=== PATIENT | female | born 1940 | race Caucasian/White ===

== ENCOUNTER 2019-03-05 10:42 | Emergency (ER) | payer OTHER ==
--- OUTSIDE RECORDS SUMMARY | 2019-03-05 10:53 | XMS REPORT ---
:1940 Author Organization e[employer]Works Care Team Providers Name Role Phone Veliz, Na Provider Role Unavailable Allergies No Known Allergies Problems Problem Type Condition Code Onset Dates Condition Status Problem Herpes zoster without complication B02.9 Active Problem Postherpetic neuralgia B02.29 Active Problem Dementia without behavioral F03.90 Active disturbance, unspecified dementia type Problem Primary osteoarthritis of right knee M17.11 Active Problem GERD (gastroesophageal reflux K21.9 Active disease) Problem Seasonal allergic rhinitis, J30.2 Active unspecified trigger Problem HTN (hypertension) I10 Active Problem Hoarseness R49.0 Active Problem Smell disturbance R43.9 Active Problem Depression with anxiety F41.8 Active Problem Taste absent R43.2 Active Problem Unsteady gait R26.81 Active Problem Hyperlipidemia E78.5 Active Problem Memory loss R41.3 Active Problem Hypothyroidism E03.9 Active Problem Allergic rhinitis J30.9 Active Problem 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 without behavioral disturbance Problem 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 Active Problem Encounter for screening mammogram Z12.31 Active for malignant neoplasm of breast Problem 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 Assessment Depression with anxiety F41.8 Active Problem Sciatica of left side M54.32 Active Problem Acute right-sided thoracic back pain M54.6 Active Medications Medication Code Code Instructions Start End Status Dosage System Date Date [facility] 28279064934 81 MG Orally Active 1 tablet Once a day Kwabena [facility] 29125265555 0.01 % Active 1 drop into Ophthalmic affected eye Once a day in the evening Multi For Her [facility] 25284515134 - Orally Active as directed 50+ Donepezil HCl [facility] 93340621318 5 MG Orally Active 1 tablet at Once a day bedtime Paroxetine HCl [facility] 98605265480 20MG Orally Active TAKE ONE Once a day TABLET BY MOUTH ONCE DAILY Metoprolol [facility] 75718130561 50 MG Orally Active 1 tablet Succinate ER Once a day Lidocaine HCl [facility] 53092148179 3 % Externally Active 1 application Twice a day to affected area as needed Namenda [facility] 88169579482 10 MG Orally Active 1 tablet Twice a day Zyrtec Allergy [place] 26327739792 10 MG Orally Active 1 tablet Once a day L-Theanine [facility] 21214933848 100 MG Orally Active as directed Vitamin D3 [facility] 32243233949 2000 UNIT Active 1 capsule Orally Once a day Melatonin ND 66271572711 5 MG Orally Active 1 tablet at Once a day bedtime as needed with food Pravastatin [facility] 32536724096 40MG Orally Active 1 tablet Sodium twice a day Gabapentin [facility] 99406027803 300 MG Orally Dec 30, Active 1 capsule Once a day on 2017 before day 1 and twic bedtime a day on day 2 and then three times a day after that [place] 3 [facility] 65235274142 1000 MG Orally Active 1 capsule Once a day Combigan [facility] 71262652017 0.2-0.5 % Active 1 drop into Ophthalmic affected eye Twice a day Valacyclovir HCl [facility] 34546197099 1GM Orally Active 1 tablet three times a day Gabapentin [facility] 49950768379 600 MG Orally Active 1 tablet three times a day Omeprazole [facility] 50106017122 40MG Active TAKE ONE CAPSULE BY MOUTH ONCE DAILY Hair Skin Nails [facility] 81195988001 - Orally Active as directed B-12 [facility] 56555954614 5000 MCG Active as directed Orally Levothyroxine [facility] 05353710055 75 MCG Orally Active 1 tablet on Sodium Once a day an empty stomach in the morning Vitamin E ND 0 400 IU PO once Dec 06, Active 1 capsule Natural a day 2018 CoQ10 [facility] 52352173001 200 MG Orally Active 1 capsule Once a day with a meal Vitamin C [facility] [address]-59 1000 MG Orally Active 1 tablet Twice a Day Super B [facility] 68261508206 - Orally Active as directed Complex/Vitamin C Results No Known Results Summary Purpose eClinicalWorks Submission
--- OUTSIDE RECORDS SUMMARY | 2019-03-05 10:53 | XMS REPORT ---
:1940 Author Organization e[employer]Works Care Team Providers Name Role Phone Veliz, Na Provider Role Unavailable Allergies, Adverse Reactions, Alerts Substance Reaction Event Type penicillin itching Drug Allergy codeine itching Drug Allergy Caffeine jitery Drug Allergy Problems Problem Type Condition Code Onset Dates Condition Status Assessment Smell disturbance R43.9 Active Assessment Taste absent R43.2 Active Assessment Dementia without behavioral F03.90 Active disturbance, unspecified dementia type Assessment Hypothyroidism E03.9 Active Assessment Hyperlipidemia E78.5 Active Assessment Unsteady gait R26.81 Active Problem 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 Assessment Depression with anxiety F41.8 Active Problem Acute right-sided thoracic back pain M54.6 Active Assessment HTN (hypertension) I10 Active Problem Herpes zoster without complication B02.9 Active Problem Postherpetic neuralgia B02.29 Active Problem Dementia without behavioral F03.90 Active disturbance, unspecified dementia type Problem Primary osteoarthritis of right knee M17.11 Active Problem Seasonal allergic rhinitis, J30.2 Active unspecified trigger Problem GERD (gastroesophageal reflux K21.9 Active disease) Problem HTN (hypertension) I10 Active Problem Hoarseness R49.0 Active Assessment Postherpetic neuralgia B02.29 Active Problem Smell disturbance R43.9 Active Problem [...] Active for malignant neoplasm of breast Problem Sciatica of left side M54.32 Active Medications Medication Code Code Instructions Start End Status Dosage System Date Date [facility] 13036803563 81 MG Orally Active 1 tablet Once a day Gabapentin [facility] 18150108328 300 MG Orally Active 1 capsule Twice a day before bedtime Namenda [facility] 98585461704 10 MG Orally Active 1 tablet Twice a day Paxil [facility] 82010473983 20 MG Orally Active 1 tablet in Once a day the morning Metoprolol [facility] 87172173446 50 MG Orally Inactive 1 tablet Succinate ER Once a day Gabapentin [facility] 97703559371 600 MG Orally Active 1 tablet three times a day Zyrtec Allergy [facility] 31738074684 10 MG Orally Active 1 tablet Once a day Levothyroxine [facility] 05004632582 75 MCG Orally Active 1 tablet on Sodium Once a day an empty stomach in the morning Incruse Ellipta [facility] 32829108322 62.5 MCG/INH Dec 30March Active 1 puff Inhalation 2017, Once a day 2017 Gabapentin [facility] 63214626054 300 MG Orally Dec 30, Active 1 capsule Once a day on 2017 before day 1 and twic bedtime a day on day 2 and then three times a day after that Combigan [facility] 57383879173 0.2-0.5 % Active 1 drop into Ophthalmic affected eye Twice a day Pravastatin [facility] 91480472951 40 MG Orally Active 1 tablet Sodium Once a day Omeprazole [facility] 74835367361 40 MG Orally Active 1 capsule Once a day Lumigan [facility] 24066058536 0.01 % Active 1 drop into Ophthalmic affected eye Once a day in the evening Lidocaine HCl [facility] 92991885398 3 % Externally Active 1 application Twice a day to affected area as needed Paroxetine HCl [facility] 80903428196 20MG Active TAKE ONE TABLET BY MOUTH ONCE DAILY Results No Known Results Summary Purpose eClinicalWorks Submission
--- OUTSIDE RECORDS SUMMARY | 2019-03-05 10:53 | XMS REPORT ---
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 Assessment Hoarseness R49.0 Active Problem Acute right-sided thoracic back pain M54.6 Active Assessment Seasonal allergic rhinitis, J30.2 Active unspecified trigger Problem Herpes zoster without complication B02.9 Active Problem Postherpetic neuralgia B02.29 Active Problem Dementia without behavioral F03.90 Active disturbance, unspecified dementia type Problem Primary osteoarthritis of right knee M17.11 Active Problem Seasonal allergic rhinitis, J30.2 Active unspecified trigger Problem GERD (gastroesophageal reflux K21.9 Active disease) Problem HTN (hypertension) I10 Active Problem Hoarseness R49.0 Active Assessment HTN (hypertension) I10 Active Problem Smell disturbance R43.9 Active Problem [...] Start End Status Dosage System Date Date Namenda ND 89762032081 10 MG Orally Active 1 tablet Twice a day Lumigan [facility] 51254751992 0.01 % Active 1 drop into Ophthalmic affected eye Once a day in the evening Zyrtec Allergy [facility] 47085192835 10 MG Orally Active 1 tablet Once a day Gabapentin [facility] 96052871163 300 MG Orally Active 1 capsule Twice a day before bedtime Gabapentin [facility] 08319978551 600 MG Orally Active 1 tablet three times a day Paxil [facility] 58372032532 20 MG Orally Active 1 tablet in Once a day the morning Metoprolol [facility] 62555965386 50 MG Orally Inactive 1 tablet Succinate ER Once a day Combigan [facility] 64766243707 0.2-0.5 % Active 1 drop into Ophthalmic affected eye Twice a day Omeprazole [facility] 06448355510 40MG Active TAKE ONE CAPSULE BY MOUTH ONCE DAILY Levothyroxine [facility] 92973376917 75 MCG Orally Active 1 tablet on Sodium Once a day an empty stomach in the morning Paroxetine HCl [facility] 49127625967 20MG Active TAKE ONE TABLET BY MOUTH ONCE DAILY Lidocaine HCl [facility] 53759957592 3 % Externally Active 1 application Twice a day to affected area as needed Gabapentin [facility] 18680907452 300 MG Orally Dec 30, Active 1 capsule Once a day on 2017 before day 1 and twic bedtime a day on day 2 and then three times a day after that Aspir-81 [facility] 93741504389 81 MG Orally Active 1 tablet Once a day Pravastatin [facility] 04666497168 40 MG Orally Active 1 tablet Sodium Once a day Results No Known Results Summary Purpose eClinicalWorks Submission
--- OUTSIDE RECORDS SUMMARY | 2019-03-05 10:54 | XMS REPORT ---
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
--- OUTSIDE RECORDS SUMMARY | 2019-03-05 10:54 | XMS REPORT ---
[...] Start End Status Dosage System Date Date Omeprazole [facility] 71237394102 40MG Active TAKE ONE CAPSULE BY MOUTH ONCE DAILY Pravastatin [facility] 84787646444 40MG Orally Active 1 tablet Sodium twice a day Results No Known Results Summary Purpose eClinicalWorks Submission
[2019-03-05 14:03] LABS: Absolute Monocytes 1.1 K/uL (0.1-1.3); Absolute Neutrophil 5.9 K/uL (1.8-8.0); Basophils % 0.6 % (0-1.3); Eosinophils % 0.8 % (0-4.4); Hematocrit 50.3 % (36.0-45.0); Lymphocytes % 12.9 % (15.3-44.8); Monocytes % 13.6 % (3.3-12.3); RBC Red Blood Cell Count 5.72 M/uL (3.86-4.86)
[2019-03-05 14:12] LABS: Potassium 3.7 mmol/L (3.5-5.1); Uric Acid 4.6 mg/dL (2.6-6.0)
--- NOTE | 2019-03-05 14:38 | RAD REPORT ---
EXAM DESCRIPTION: US - Extremity Venous Uni Ltd - 03/05/2019 2:19 pm CLINICAL HISTORY: Pain;Swelling Leg swelling and edema. COMPARISON: Extrem Venous W Compress Jaime dated 12/28/2017 FINDINGS: Left lower extremity venous system was interrogated with Doppler technique. Normal flow, c ompressibility and augmentation was noted. There is no DVT present. IMPRESSION: No evidence of left lower extremity deep venous thrombosis.
--- NOTE | 2019-03-05 15:30 | RAD REPORT ---
EXAM DESCRIPTION: RAD - Ankle Left 3 View - 03/05/2019 3:12 pm CLINICAL HISTORY: Left leg pain and swelling x1 week, no precipitating injury noted pre COMPARISON: None. FINDINGS: No fracture, dislocation or periosteal reaction. No joint effusion seen. No joint space na rrowing. Patient has a minimal plantar spur. Soft tissues around the ankle and distal leg appear prom inent with the baseline unknown. IMPRESSION: Soft tissue swelling with no air or foreign body in the soft tissues. Small plantar spur. No acute bone or joint finding.
--- NOTE | 2019-03-05 16:11 | EDPHYS ---
Physician Documentation [facility] Name: Linnea Gustafson Age: 78 yrs Sex: Female : 1940 Arrival Date: 03/05/2019 Time: 10:44 Bed 17 Private MD: ED Physician Paulo Adler HPI: 03/05 18:03 This 78 yrs old Female presents to ER via Wheelchair with complaints of Leg gs Swelling. 18:03 The patient presents with swelling. The complaints affect the left lateral ankle and gs left medial ankle. Context: The problem was sustained at home, the patient can partially bear weight. Onset: The symptoms/episode began/occurred 5 day(s) ago. Modifying factors: the symptoms are aggravated by movement, weight bearing. Associated signs and symptoms: Pertinent positives: calf tenderness, Pertinent negatives fever, tingling. Severity of symptoms: At their worst the symptoms were severe, in the emergency department the symptoms have improved, mildly. The patient has not experienced similar symptoms in the past. Historical: - Allergies: 10:57 Codeine; aa5 10:57 PENICILLINS; aa5 - PMHx: 10:57 Anxiety; GERD; Glaucoma; Hypertension; Hypothyroidism; aa5 - PSHx: 10:57 Hysterectomy; Appendectomy; aa5 - Immunization history:: Flu vaccine is up to date. - Social history:: Smoking status: Patient/guardian denies using tobacco. - Ebola Screening: : No symptoms or risks identified at this time. ROS: 18:03 All other systems are negative. gs Exam: 18:03 Head/Face: Normocephalic, atraumatic. Eyes: Pupils equal round and reactive to light, gs extra-ocular motions intact. Lids and lashes normal. Conjunctiva and sclera are non-icteric and not injected. Cornea within normal limits. Periorbital areas with no swelling, redness, or edema. ENT: Nares patent. No nasal discharge, no septal abnormalities noted. Tympanic membranes are normal and external auditory canals are clear. Oropharynx with no redness, swelling, or masses, exudates, or evidence of obstruction, uvula midline. Mucous membranes moist. Neck: Trachea midline, no thyromegaly or masses palpated, and no cervical lymphadenopathy. Supple, full range of motion without nuchal rigidity, or vertebral point tenderness. No Meningismus. Chest/axilla: Normal chest wall appearance and motion. Nontender with no deformity. No lesions are appreciated. Cardiovascular: Regular rate and rhythm with a normal S1 and S2. No gallops, murmurs, or rubs. Normal PMI, no JVD. No pulse deficits. Respiratory: Lungs have equal breath sounds bilaterally, clear to auscultation and percussion. No rales, rhonchi or wheezes noted. No increased work of breathing, no retractions or nasal flaring. Abdomen/GI: Soft, non-tender, with normal bowel sounds. No distension or tympany. No guarding or rebound. No evidence of tenderness throughout. Back: No spinal tenderness. No costovertebral tenderness. Full range of motion. Skin: Warm, dry with normal turgor. Normal color with no rashes, no lesions, and no evidence of cellulitis. Neuro: Awake and alert, GCS 15, oriented to person, place, time, and situation. Cranial nerves II-XII grossly intact. Motor strength 5/5 in all extremities. Sensory grossly intact. Cerebellar exam normal. Normal gait. 18:03 Constitutional: The patient appears alert, awake. 18:03 Musculoskeletal/extremity: ROM: no acute changes, Pulses: are normal with no appreciated deficits, Sensation intact. Joints: the left ankle displays mild effusion, mild erythema not hot, mod warmth. 18:15 Musculoskeletal/extremity: DVT Exam: pain, swelling, tenderness. Vital Signs: 11:00 BP 126 / 66; Pulse 74; Resp 18 S; Temp 98.6(TE); Pulse Ox 98% on R/A; Weight 72.57 kg aa5 (R); Height 5 ft. 4 in. (162.56 cm) (R); Pain 9/10; 14:13 BP 156 / 65; Pulse 65; Resp 18; Pulse Ox 98% ; sv 15:22 BP 139 / 75; Pulse 67; Resp 18; Pulse Ox 99% ; sv 16:09 BP 151 / 81; Pulse 68; Resp 16; Pulse Ox 99% ; sv 11:00 Body Mass Index 27.46 (72.57 kg, 162.56 cm) aa5 MDM: 13:18 Patient medically screened. 18:03 Differential diagnosis: tendonitis, arthritis,gout,septic joint. Data reviewed: vital gs signs, nurses notes, lab test result(s), radiologic studies. Counseling: I had a detailed discussion with the patient and/or guardian regarding: the historical points, exam findings, and any diagnostic results supporting the discharge/admit diagnosis, lab results, radiology results, the need for outpatient follow up, a orthopedic surgeon. Physician consultation: Anish Sarmiento MD and will see patient in office, said no joint tap current time. 18:15 Differential diagnosis: dvt. 03/05 13:30 Order name: CBC with Diff; Complete Time: 14:49 03/05 13:30 Order name: Basic Metabolic Panel; Complete Time: 14:49 03/05 13:30 Order name: Uric Acid; Complete Time: 14:49 03/05 13:30 Order name: US Extremity Venous Unilateral Ltd; Complete Time: 14:49 03/05 14:50 Order name: XRAY Ankle LEFT 3 view; Complete Time: 15:41 03/05 16:09 Order name: Khalif Wrap; Complete Time: 16:29 Administered Medications: 16:08 Drug: TORadol - Ketorolac 15 mg Route: IVP; Site: right antecubital; sv 16:29 Follow up: Response: No adverse reaction; Pain is decreased sv Disposition: 03/05/19 16:10 Discharged to Home. Impression: Monoarthritis, not elsewhere classified, left ankle and foot. - Condition is Stable. - Discharge Instructions: Arthritis. - Prescriptions for Naprosyn 500 mg Oral Tablet - take 1 tablet by ORAL route 2 times per day take with food; 20 tablet. Pepcid 20 mg Oral Tablet - take 1 tablet by ORAL route every 12 hours for 10 days; 20 tablet. - Medication Reconciliation Form, Thank You Letter, Antibiotic Education, Prescription Opioid Use form. - Follow up: Anish Sarmiento MD; When: 2 - 3 days; Reason: Re-evaluation by your physician. Signatures: Dispatcher [employer] Linda Aldridge RN RN sv Calderon, Audri, RN RN Paulo Kc MD MD Corrections: (The following items were deleted from the chart) 11:06 10:57 Social history: Smoking status: Patient/guardian denies using tobacco, aa5 aa5 16:31 16:10 03/05/2019 16:10 Discharged to Home. Impression: Monoarthritis, not elsewhere sv classified, left ankle and foot. Condition is Stable. Forms are Medication Reconciliation Form, Thank You Letter, Antibiotic Education, Prescription Opioid Use. Follow up: Dr. Anish Sarmiento; When: 2 - 3 days; Reason: Re-evaluation by your physician. gs
--- NOTE | 2019-03-05 16:11 | ER ---
Nurse's Notes [facility] Name: Linnea Gustafson Age: 78 yrs Sex: Female : 1940 Arrival Date: 03/05/2019 Time: 10:44 Bed 17 Private MD: Diagnosis: Monoarthritis, not elsewhere classified, left ankle and foot Presentation: 03/05 10:59 Presenting complaint: Patient states: left leg swelling and pain that began 1 week ago. aa5 Pt also c/o sore throat and headache x 4 days. Transition of care: patient was not received from another setting of care. Onset of symptoms was February 2019. Risk Assessment: Do you want to hurt yourself or someone else? Patient reports no desire to harm self or others. Initial Sepsis Screen: Does the patient meet any 2 criteria? No. Patient's initial sepsis screen is negative. Does the patient have a suspected source of infection? No. Patient's initial sepsis screen is negative. Care prior to arrival: None. 10:59 Acuity: VANNESSA 3 aa5 10:59 Method Of Arrival: Wheelchair aa5 Historical: - Allergies: 10:57 Codeine; aa5 10:57 PENICILLINS; aa5 - PMHx: 10:57 Anxiety; GERD; Glaucoma; Hypertension; Hypothyroidism; aa5 - PSHx: 10:57 Hysterectomy; Appendectomy; aa5 - Immunization history:: Flu vaccine is up to date. - Social history:: Smoking status: Patient/guardian denies using tobacco. - Ebola Screening: : No symptoms or risks identified at this time. Screenin:45 Abuse screen: Denies threats or abuse. Denies injuries from another. Nutritional sv screening: No deficits noted. Tuberculosis screening: No symptoms or risk factors identified. Fall Risk None identified. Assessment: 13:40 General: Appears in no apparent distress. comfortable, well developed, Behavior is sv calm, cooperative, appropriate for age. Pain: Complains of pain in left lateral ankle and left medial ankle Pain currently is 9 out of 10 on a pain scale. Pain began 2-3 days ago. Is intermittent, episodic, Aggravated by increased activity, weight bearing. Neuro: Level of Consciousness is awake, alert, obeys commands, Oriented to person, place, time, situation, Moves all extremities. Full function Speech is normal. Cardiovascular: Patient's skin is warm and dry. Pulses are 2+ in right dorsalis pedis artery and left dorsalis pedis artery. Respiratory: Airway is patent Respiratory effort is even, unlabored, Respiratory pattern is regular, symmetrical. Derm: Skin is pink, warm \T\ dry. Redness noted to the inner left ankle, pt stated that the redness has improved over the last couple of days. 14:07 Reassessment: Ultrasound at the bedside. sv 15:20 Reassessment: Patient appears in no apparent distress at this time. No changes from sv previously documented assessment. Patient and/or family updated on plan of care and expected duration. Pain level reassessed. Patient is alert, oriented x 3, equal unlabored respirations, skin warm/dry/pink. 16:09 Reassessment: Patient appears in no apparent distress at this time. No changes from sv previously documented assessment. Patient and/or family updated on plan of care and expected duration. Pain level reassessed. Patient is alert, oriented x 3, equal unlabored respirations, skin warm/dry/pink. Vital Signs: 11:00 BP 126 / 66; Pulse 74; Resp 18 S; Temp 98.6(TE); Pulse Ox 98% on R/A; Weight 72.57 kg aa5 (R); Height 5 ft. 4 in. (162.56 cm) (R); Pain 9/10; 14:13 BP 156 / 65; Pulse 65; Resp 18; Pulse Ox 98% ; sv 15:22 BP 139 / 75; Pulse 67; Resp 18; Pulse Ox 99% ; sv 16:09 BP 151 / 81; Pulse 68; Resp 16; Pulse Ox 99% ; sv 11:00 Body Mass Index 27.46 (72.57 kg, 162.56 cm) aa5 ED Course: 10:44 Patient arrived in ED. as 10:56 Arm band placed on. aa5 10:59 Triage completed. aa5 13:02 Paulo Adler MD is Attending Physician. 13:07 Linda Aguayo, CORINA is Primary Nurse. sv 13:45 Patient has correct armband on for positive identification. Placed in gown. Bed in low sv position. Call light in reach. Side rails up X 1. Adult w/ patient. automation control technician on. Pulse ox on. NIBP on. Door closed. Warm blanket given. Head of bed elevated. 13:45 Initial lab(s) drawn, by me, sent to lab. Inserted saline lock: 20 gauge in right sv antecubital area, using aseptic technique. Blood collected. Flushed right antecubital with 5 ml normal saline. 14:19 US Extremity Venous Unilateral Ltd In Process Unspecified. EDMS 15:13 XRAY Ankle LEFT 3 view In Process Unspecified. EDMS 16:10 Anish Sarmiento MD is Referral Physician. gs 16:20 No provider procedures requiring assistance completed. IV discontinued, intact, sv bleeding controlled, No redness/swelling at site. Pressure dressing applied. Khalif wrap to left ankle. Administered Medications: 16:08 Drug: TORadol - Ketorolac 15 mg Route: IVP; Site: right antecubital; sv 16:29 Follow up: Response: No adverse reaction; Pain is decreased sv Outcome: 16:10 Discharge ordered by . gs 16:31 Discharged to home via wheelchair, with family. sv 16:31 Condition: stable 16:31 Discharge instructions given to patient, family, Instructed on discharge instructions, follow up and referral plans. medication usage, Demonstrated understanding of instructions, follow-up care, medications, Prescriptions given X 2. 16:31 Patient left the ED. sv Signatures: Dispatcher [employer] EDNE Linda Aguayo RN RN sv Martinez, Amelia as Calderon, Audri, RN RN aa5 Paulo Adler MD MD Corrections: (The following items were deleted from the chart) 11:00 11:00 BP 126 / 66; Pulse 74bpm; Resp 18bpm; Spontaneous; Pulse Ox 98% RA; Temp 98.6F aa5 Temporal; aa5 11:01 10:59 Presenting complaint: Patient states: left leg swelling and pain that began 1 aa5 week ago. Pt also c/o sore throat and headache x 4 days. aa5 11:06 10:57 Social history: Smoking status: Patient/guardian denies using tobacco, aa5 aa5
[2019-03-05] MEDS ORDERED: KETOROLAC 30 MG/ML INJ ONE (16:12)
[2019-03-05 17:47] VITALS: TEMP 98.6
[2019-03-05 17:49] VITALS: O2SAT 99
[2019-03-05 17:50] VITALS: BP 151/81
== END 2019-03-05 16:31 | disposition home or self-care (01) ==
LOC: ER 10:42
DX: M13.172 Monoarthritis, not elsewhere classified, left ankle and foot (principal); I10 Essential (primary) hypertension; Z88.0 Allergy status to penicillin; Z88.5 Allergy status to narcotic agent
CPT/HCPCS: 36415; 80048; 84550; 85025; 93971; 96374; 99285

== ENCOUNTER 2019-07-17 11:05 | Observation (INO) | payer OTHER ==
--- OUTSIDE RECORDS SUMMARY | 2019-07-17 11:08 | XMS REPORT ---
:1940 Author Organization eClinicalWorks Care Team Providers Name Role Phone Veliz, Na Provider Role Unavailable Allergies No Known Allergies Problems Problem Type Condition Code Onset Dates Condition Status Problem Dementia without behavioral F03.90 Active disturbance, unspecified dementia type Problem Depression with anxiety F41.8 Active Problem Postherpetic neuralgia B02.29 Active Problem Hoarseness R49.0 Active Problem Hypothyroidism E03.9 Active Problem Primary osteoarthritis of right M17.11 Active knee Problem GERD (gastroesophageal reflux K21.9 Active disease) Problem HTN (hypertension) I10 Active Problem History of colon polyps Z86.010 Active Problem Unsteady gait R26.81 Active Problem Smell disturbance R43.9 Active Problem Seasonal allergic rhinitis, J30.2 Active unspecified trigger Problem Taste absent R43.2 Active Problem Memory loss R41.3 Active Problem Encounter for screening mammogram Z12.31 Active for malignant neoplasm of breast Problem Allergic rhinitis J30.9 Active Problem Hyperlipidemia E78.5 Active Problem 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 Active Problem 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
--- OUTSIDE RECORDS SUMMARY | 2019-07-17 11:08 | XMS REPORT ---
:1940 Author Organization e[employer] Care Team Providers Name Role Phone Veliz, Na Provider Role Unavailable Allergies, Adverse Reactions, Alerts Substance Reaction Event Type Caffeine jitery Drug Allergy Problems Problem Type Condition Code Onset Dates Condition Status Assessment Impacted cerumen of both ears H61.23 Active Assessment Primary osteoarthritis of right M17.11 Active knee Assessment Hoarseness R49.0 Active Assessment Depression with anxiety F41.8 Active Assessment Seasonal allergic rhinitis, J30.2 Active unspecified trigger Assessment Postherpetic neuralgia B02.29 Active Assessment Hypothyroidism E03.9 Active Assessment Hyperlipidemia E78.5 Active Assessment HTN (hypertension) I10 Active Problem Herpes zoster without complication B02.9 Active Problem Dementia without behavioral F03.90 Active disturbance, unspecified dementia type Problem HTN (hypertension) I10 Active Problem Postherpetic neuralgia B02.29 Active Problem Smell disturbance R43.9 Active Problem Depression with anxiety F41.8 Active Problem History of colon polyps Z86.010 Active Problem Primary osteoarthritis of right M17.11 Active knee Problem Allergic rhinitis J30.9 Active Problem Hypothyroidism E03.9 Active Problem Memory changes R41.3 Active Problem GERD (gastroesophageal reflux K21.9 Active disease) Problem Unsteady gait R26.81 Active Problem Taste absent R43.2 Active Problem Hoarseness R49.0 Active Problem Seasonal allergic rhinitis, J30.2 Active unspecified trigger Assessment Screening for diabetes mellitus Z13.1 Active Problem Encounter for screening mammogram Z12.31 Active for malignant neoplasm of breast Assessment Memory changes R41.3 Active Problem Sciatica of left side M54.32 Active Problem Hyperlipidemia E78.5 Active Problem Memory loss R41.3 Active Problem 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 Problem Acute right-sided thoracic back M54.6 Active pain Problem 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 without behavioral disturbance Problem 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 Active Medications Medication Code Code Instructions Start End Status Dosage System Date Date Pravastatin [facility] 95330642942 80 MG Orally Active 1 tablet Sodium Once a day Multi For Her [facility] 71171606599 - Orally Active as directed 50+ Levothyroxine [facility] 67380305055 75 MCG Orally Active 1 tablet on Sodium Once a day an empty stomach in the morning Gabapentin [facility] 17553917834 600 MG Orally Active 1 tablet three times a day Hair Skin Nails [facility] 15629263655 - Orally Active as directed Melatonin [facility] 23444374187 5 MG Orally Active 1 tablet at Once a day bedtime as needed with food Vitamin D3 [facility] 80080263574 2000 UNIT Active 1 capsule Orally Once a day Paroxetine HCl [facility] 95354293758 20MG Orally Active TAKE ONE Once a day TABLET BY MOUTH ONCE DAILY Metoprolol [facility] 85637510840 50 MG Orally Active 1 tablet Succinate ER Once a day Namenda [facility] 77726032856 10 MG Orally Active 1 tablet Twice a day CoQ10 [facility] 31626379282 200 MG Orally Active 1 capsule Once a day with a meal Vitamin C [facility] 73728576900 1000 MG Orally Active 1 tablet Twice a Day Super B [facility] 34647982892 - Orally Active as directed Complex/Vitamin C Vitamin E [facility] 0 400 IU PO once Dec 06, Active 1 capsule Natural a day [address] [facility] 67719582005 20MG Active TAKE ONE TABLET BY MOUTH ONCE DAILY Donepezil HCl [facility] 23542385878 5 MG Orally Active 1 tablet at Once a day bedtime Pravastatin [facility] 47844883810 40MG Orally Active 1 tablet Sodium twice a day B-[address] [facility] 16612500118 5000 MCG Orally Active as directed Levothyroxine [facility] 46243465142 75 MCG Orally Active 1 tablet on Sodium Once a day an empty stomach in the morning Omeprazole [facility] 26241973425 40MG Active TAKE ONE CAPSULE BY MOUTH ONCE DAILY Pravastatin [facility] 43854712014 40 MG Orally Active 1 tablet Sodium Once a day Zyrtec Allergy [facility] 52300973200 10 MG Orally Active 1 tablet Once a day Lidocaine HCl [facility] 08170613285 3 % Externally Active 1 application Twice a day to affected area as needed Aspir-[address] [facility] 53645305157 81 MG Orally Active 1 tablet Once a day Gabapentin [facility] 33166895459 600 MG Orally Active 1 tablet three times a day L-Theanine [facility] 56250477770 100 MG Orally Active as directed Sergio [facility] 16891711878 0.2-0.5 % Active 1 drop into Ophthalmic affected eye Twice a day Kwabena [facility] 98499305687 0.01 % Active 1 drop into Ophthalmic Once affected eye a day in the evening [place] [address] [facility] 67716611944 1000 MG Orally Active 1 capsule Once a day Results No Known Results Summary Purpose eClinicalWorks Submission
--- OUTSIDE RECORDS SUMMARY | 2019-07-17 11:08 | XMS REPORT ---
[...] End Status Dosage System Date Date Pravastatin [facility] 78602868241 40MG Orally Active 1 tablet Sodium twice a day Results No Known Results Summary Purpose eClinicalWorks Submission
--- OUTSIDE RECORDS SUMMARY | 2019-07-17 11:08 | XMS REPORT ---
[...] End Status Dosage System Date Date Omeprazole [facility] 56552390007 40MG Active TAKE ONE CAPSULE BY MOUTH ONCE DAILY Pravastatin [facility] 51429825551 40MG Orally Active 1 tablet Sodium twice a day Results No Known Results Summary Purpose eClinicalWorks Submission
--- OUTSIDE RECORDS SUMMARY | 2019-07-17 11:08 | XMS REPORT ---
:1940 Author Organization eClinicalWorks Care Team Providers Name Role Phone Veliz, Na Provider Role Unavailable Allergies, Adverse Reactions, Alerts Substance Reaction Event Type Caffeine jitery Drug Allergy Problems Problem Type Condition Code Onset Dates Condition Status Assessment Screening for malignant neoplasm of Z12.11 Active colon Assessment Impacted cerumen of both ears H61.23 Active Assessment Depression with anxiety F41.8 Active Assessment History of colon polyps Z86.010 Active Assessment Hoarseness R49.0 Active Assessment Seasonal allergic rhinitis, J30.2 Active unspecified trigger Assessment Postherpetic neuralgia B02.29 Active Assessment Hypothyroidism E03.9 Active Assessment Hyperlipidemia E78.5 Active Problem Acute right-sided thoracic back M54.6 Active pain Assessment HTN (hypertension) I10 Active Problem Herpes zoster without complication B02.9 Active Problem Dementia without behavioral F03.90 Active disturbance, unspecified dementia type Problem Depression with anxiety F41.8 Active Problem Postherpetic neuralgia B02.29 Active Problem Hoarseness R49.0 Active Problem Primary osteoarthritis of right M17.11 Active knee Problem Hypothyroidism E03.9 Active Problem GERD (gastroesophageal reflux K21.9 Active disease) Problem History of colon polyps Z86.010 Active Problem HTN (hypertension) I10 Active Problem Unsteady gait R26.81 Active Problem Smell disturbance R43.9 Active Problem Seasonal allergic rhinitis, J30.2 Active unspecified trigger Problem Taste absent R43.2 Active Assessment Screening for diabetes mellitus Z13.1 Active Problem Memory loss R41.3 Active Assessment Primary osteoarthritis of right M17.11 Active knee Problem Encounter for screening mammogram Z12.31 Active for malignant neoplasm of breast Problem Allergic rhinitis J30.9 Active Problem Hyperlipidemia E78.5 Active Problem 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 Active Problem 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 Problem Sciatica of left side M54.32 Active Problem 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 without behavioral disturbance Medications Medication Code Code Instructions Start End Status Dosage System Date Date Melatonin [facility] 19631844476 5 MG Orally Active 1 tablet at Once a day bedtime as needed with food Vitamin D3 [facility] 59970203249 2000 UNIT Active 1 capsule Orally Once a day [place] 3 [facility] 62724544665 1000 MG Orally Active 1 capsule Once a day CoQ10 [facility] 69916597804 200 MG Orally Active 1 capsule Once a day with a meal Omeprazole [facility] 55136343755 40MG Active TAKE ONE CAPSULE BY MOUTH ONCE DAILY Gabapentin [facility] 99082367232 600 MG Orally Active 1 tablet three times a day Donepezil HCl [facility] 42378859764 5 MG Orally Active 1 tablet at Once a day bedtime Super B [facility] 31667459910 - Orally Active as directed Complex/Vitamin C Hair Skin Nails [facility] 31620188844 - Orally Active as directed Gabapentin [facility] 47149174960 600 MG Orally Active 1 tablet three times a day Levothyroxine [facility] 44721508458 75 MCG Orally Active 1 tablet on Sodium Once a day an empty stomach in the morning Levothyroxine [facility] 29909164945 75 MCG Orally Active 1 tablet on Sodium Once a day an empty stomach in the morning Multi For Her [facility] 16337606914 - Orally Active as directed 50+ Zyrtec Allergy [facility] 02700664684 10 MG Orally Active 1 tablet Once a day Vitamin E [facility] 0 400 IU PO once Dec 06, Active 1 capsule Natural a day 2018 B-12 [facility] 11808555650 5000 MCG Orally Active as directed Lumigan [facility] 98121177635 0.01 % Active 1 drop into Ophthalmic Once affected eye a day in the evening Combigan [facility] 99502889366 0.2-0.5 % Active 1 drop into Ophthalmic affected eye Twice a day Vitamin C [facility] 62174314962 1000 MG Orally Active 1 tablet Twice a Day L-Theanine [facility] 40830778186 100 MG Orally Active as directed Namenda [facility] 66516372899 10 MG Orally Active 1 tablet Twice a day Paroxetine HCl [facility] 90480090952 20MG Orally Active TAKE ONE Once a day TABLET BY MOUTH ONCE DAILY Pravastatin [facility] 15710563329 40 MG Orally Active 1 tablet Sodium Once a day Aspir-81 [facility] 28845327103 81 MG Orally Active 1 tablet Once a day Pravastatin [facility] 69037043555 80 MG Orally Active 1 tablet Sodium Once a day Lidocaine HCl NDC 98709896990 3 % Externally Active 1 application Twice a day to affected area as needed Metoprolol [facility] 32914966016 50 MG Orally Active 1 tablet Succinate ER Once a day Paroxetine HCl [facility] 55285696680 20MG Active TAKE ONE TABLET BY MOUTH ONCE DAILY Results No Known Results Summary Purpose eClinicalWorks Submission
--- OUTSIDE RECORDS SUMMARY | 2019-07-17 11:08 | XMS REPORT ---
[...] Start End Status Dosage System Date Date [facility] 12652937999 81 MG Orally Active 1 tablet Once a day Kwabena [facility] 19233168034 0.01 % Active 1 drop into Ophthalmic affected eye Once a day in the evening Multi For Her [facility] 26574844230 - Orally Active as directed 50+ Donepezil HCl [facility] 81078730713 5 MG Orally Active 1 tablet at Once a day bedtime Paroxetine HCl [facility] 62350052993 20MG Orally Active TAKE ONE Once a day TABLET BY MOUTH ONCE DAILY Metoprolol [facility] 86502137443 50 MG Orally Active 1 tablet Succinate ER Once a day Lidocaine HCl [facility] 37971055373 3 % Externally Active 1 application Twice a day to affected area as needed Namenda [facility] 83596400141 10 MG Orally Active 1 tablet Twice a day Zyrtec Allergy [place] 25715189876 10 MG Orally Active 1 tablet Once a day L-Theanine [facility] 24776105191 100 MG Orally Active as directed Vitamin D3 [facility] 03935452001 2000 UNIT Active 1 capsule Orally Once a day Melatonin [place] 59830625965 5 MG Orally Active 1 tablet at Once a day bedtime as needed with food Pravastatin [facility] 35069329859 40MG Orally Active 1 tablet Sodium twice a day Gabapentin [facility] 29974889927 300 MG Orally Dec 30, Active 1 capsule Once a day on 2017 before day 1 and twic bedtime a day on day 2 and then three times a day after that [place] 3 [facility] 04227214619 1000 MG Orally Active 1 capsule Once a day Combigan [facility] 22994236861 0.2-0.5 % Active 1 drop into Ophthalmic affected eye Twice a day Valacyclovir HCl [facility] 81174488086 1GM Orally Active 1 tablet three times a day Gabapentin [facility] 18812850357 600 MG Orally Active 1 tablet three times a day Omeprazole [facility] 04017731812 40MG Active TAKE ONE CAPSULE BY MOUTH ONCE DAILY Hair Skin Nails [facility] 41113298295 - Orally Active as directed B-12 [facility] 66026020853 5000 MCG Active as directed Orally Levothyroxine [facility] 45158387386 75 MCG Orally Active 1 tablet on Sodium Once a day an empty stomach in the morning Vitamin E [place] 0 400 IU PO once Dec 06, Active 1 capsule Natural a day 2018 CoQ10 [facility] 80468395181 200 MG Orally Active 1 capsule Once a day with a meal Vitamin C [facility] [address]-24 1000 MG Orally Active 1 tablet Twice a Day Super B [facility] 99797639506 - Orally Active as directed Complex/Vitamin C Results No Known Results Summary Purpose eClinicalWorks Submission
[2019-07-17 11:49] LABS: Absolute Lymphocytes (CBC) 1.3 K/uL (0.7-4.9); Basophils % 0.5 % (0-1.3); MPV 9.4 fL (7.6-11.3); RBC Red Blood Cell Count 5.53 M/uL (3.86-4.86)
--- NOTE | 2019-07-17 11:54 | RAD REPORT ---
EXAM DESCRIPTION: Jerardo Single View07/17/2019 11:45 am CLINICAL HISTORY: bradycardia COMPARISON: 2016 FINDINGS: The lungs appear clear of acute infiltrate. The heart is normal size IMPRESSION: No acute abnormalities displayed
[2019-07-17 11:59] LABS: Protime INR 0.92
[2019-07-17 12:07] LABS: ALT/SGPT 25 U/L (12-78); AST/SGOT 19 U/L (15-37); Albumin 3.8 g/dL (3.4-5.0); Alkaline Phosphatase 102 U/L (45-117); BUN Blood Urea Nitrogen 12 mg/dL (7-18); Bicarbonate 28 mmol/L (21-32); Bilirubin Direct 0.2 mg/dL (0-0.2); Bilirubin Total 0.4 mg/dL (0.2-1.0); Glucose Level 120 mg/dL (74-106); Magnesium 2.1 mg/dL (1.8-2.4); NT PRO-BNP 365 pg/mL (<450); Sodium Level 144 mmol/L (136-145); Troponin (Emerg Dept Use Only) < 0.02 ng/mL (0.0-0.045)
[2019-07-17] MEDS ORDERED: METOCLOPRAMIDE 10 MG/2mL INJ ONE (12:36)
[2019-07-17] MEDS ORDERED: ACETAMINOPHEN 500 MG TAB ONE (12:36)
[2019-07-17] MEDS ORDERED: NA CHLORIDE 0.9% 1,000 ML ONE (12:37)
--- NOTE | 2019-07-17 12:56 | RAD REPORT ---
EXAM DESCRIPTION: CT - Head Brain Wo Cont - 07/17/2019 12:37 pm CLINICAL HISTORY: Headache COMPARISON: 2018 TECHNIQUE: Computed axial tomography of the head was obtained. IV contrast was not requested. All CT scans are performed using dose optimization technique as appropriate and may include automated exposure control or mA/KV adjustment according to patient size. FINDINGS: An intracranial bleed is not seen . The ventricles are normal in caliber. No extra-axial fluid collection is noted. Mild areas within periventricular and deep white matter likely represent ischemic changes secondary t o small vessel disease. Fluid within the sinuses/ mastoids is not seen. IMPRESSION: No acute intracranial abnormality is seen. If patient's symptoms persist MRI of the bra in would be recommended.
[2019-07-17 13:01] LABS: Thyroid Stimulating Hormone 0.06 uIU/mL (0.360-3.740)
--- NOTE | 2019-07-17 13:11 | ER ---
Nurse's Notes [facility] Name: Linnea Gustafson Age: 78 yrs Sex: Female : 1940 Arrival Date: 07/17/2019 Time: 11:08 Bed 8 Private MD: Diagnosis: Chest pain, unspecified Presentation: 07/17 11:09 Presenting complaint: Patient states: I went to a Dr. apt and my HR was very low so la1 they called an ambulance. EMS reports pt HR between 25 and 75 but is not symptomatic. Transition of care: patient was not received from another setting of care. Onset of symptoms was July 17, 2019. Risk Assessment: Do you want to hurt yourself or someone else? Patient reports no desire to harm self or others. Initial Sepsis Screen: Does the patient meet any 2 criteria? No. Patient's initial sepsis screen is negative. Does the patient have a suspected source of infection? No. Patient's initial sepsis screen is negative. Care prior to arrival: None. 11:09 Method Of Arrival: EMS: [facility] la1 11:09 Acuity: VANNESSA 2 la1 Historical: - Allergies: 11:15 Codeine; la1 11:15 PENICILLINS; la1 - Home Meds: 13:00 metoprolol succinate 50 mg oral Tb24 once daily [Active]; pravastatin 40 mg oral tab aa5 twice a day [Active]; paroxetine HCl 20 mg oral tab once daily [Active]; omeprazole 40 mg Oral cpDR 1 cap once daily [Active]; levothyroxine 75 mcg tab once daily [Active]; gabapentin 600 mg oral tab 3 times per day [Active]; donepezil 5 mg oral tab once daily [Active]; Namenda 10 mg oral tab 2 times per day [Active]; Lumigan 0.01 % ophthalmic drop [Active]; Zyrtec Oral [Active]; aspirin 81 mg Oral chew 1 tab once daily [Active]; - PMHx: 11:15 Anxiety; GERD; Glaucoma; Hypertension; Hypothyroidism; la1 11:15 Memory loss; Depression; aa5 - PSHx: 13:00 Hysterectomy; left eye; aa5 - Immunization history:: Adult Immunizations unknown. - Social history:: Smoking status: Patient/guardian denies using tobacco, Patient/guardian denies using alcohol, street drugs, The patient lives with family. - Ebola Screening: : No symptoms or risks identified at this time. - Family history:: not pertinent. Screenin:20 Abuse screen: Denies threats or abuse. Nutritional screening: No deficits noted. aa5 Tuberculosis screening: No symptoms or risk factors identified. Fall Risk None identified. Assessment: 11:15 General: Appears comfortable, Behavior is calm, cooperative. Pain: Denies pain. Neuro: aa5 Level of Consciousness is awake, alert, obeys commands, Oriented to person, place, time, situation, Documentation Specialist are equal bilaterally Moves all extremities. Speech is normal, Facial symmetry appears normal, Pupils are PERRLA, Reports generalized weakness, pt also reports intermittent numbness to left side of tongue and left arm that began "a very long time ago". Pt states "Dr. Cleaning did a CT of my brain but I don't remember when" . Cardiovascular: Denies chest pain, shortness of breath, Heart tones S1 S2 present Edema is absent. Rhythm is irregular. Respiratory: Airway is patent Respiratory effort is even, unlabored, Respiratory pattern is regular, symmetrical, Breath sounds are clear bilaterally. GI: Abdomen is round non-distended, Bowel sounds present X 4 quads. Abd is soft and non tender X 4 quads. Patient currently denies nausea, vomiting. : No signs and/or symptoms were reported regarding the genitourinary system. EENT: No signs and/or symptoms were reported regarding the EENT system. Derm: Skin is pink, warm \\T\\ dry. Musculoskeletal: Range of motion: intact in all extremities. 12:00 Reassessment: Dr. Peters given MRI report from 09/12/18. aa5 12:35 Reassessment: To bedside to medicate pt and pt currently at CT . aa5 13:15 Reassessment: Patient is alert, oriented x 3, equal unlabored respirations, skin aa5 warm/dry/pink. Cardiovascular: Rhythm is irregular. 13:15 Reassessment: Pt back from CT . aa5 14:50 Reassessment: Patient is alert, oriented x 3, equal unlabored respirations, skin aa5 warm/dry/pink. Pt to Echo via wheelchair. . 14:50 Reassessment: Pt will be taken to Room 229 after Echo is completed. . aa5 Vital Signs: 11:13 BP 199 / 89; Pulse 56; Resp 16; Pulse Ox 98% on R/A; la1 11:13 Temp 97.5(O); aa5 11:40 BP 199 / 80; Pulse 60; Resp 16 S; Pulse Ox 99% on R/A; aa5 12:15 BP 194 / 75; Pulse 55; Resp 16 S; Temp 97.6(O); Pulse Ox 98% on R/A; aa5 13:00 BP 196 / 67; Pulse 57; Resp 18 S; Pulse Ox 100% on R/A; aa5 13:30 BP 194 / 75; Pulse 57; Resp 16 S; Temp 98.0(TE); Pulse Ox 100% on R/A; aa5 14:30 BP 191 / 66; Pulse 56; Resp 16 S; Pulse Ox 99% on R/A; aa5 ED Course: 11:08 Patient arrived in ED. la1 11:09 Jessica Peters MD is Attending Physician. ma2 11:12 Triage completed. la1 11:13 Tangela Chatman, CORINA is Primary Nurse. aa5 11:14 Arm band placed on. EKG completed in triage. Results shown to MD. la1 11:15 Patient has correct armband on for positive identification. Placed in gown. Bed in low aa5 position. Call light in reach. Side rails up X2. communications clerk on. Pulse ox on. NIBP on. 11:15 Inserted Missed attempt(s): 22 gauge in right antecubital area. kj1 11:38 Initial lab(s) drawn, by me, sent to lab. kj1 11:43 X-ray completed. Portable x-ray completed in exam room. Patient tolerated procedure jb2 well. 11:49 XRAY Chest (1 view) In Process Unspecified. EDMS 12:26 Florecita Patel MD is Hospitalizing Provider. ma2 13:14 Inserted saline lock: 20 gauge in right upper arm, using aseptic technique. aa5 15:00 No provider procedures requiring assistance completed. aa5 15:15 Patient admitted, IV remains in place. aa5 Administered Medications: 13:14 Not Given (Patient Refused): Reglan 10 mg IVP once; over 1 to 2 minutes aa5 13:14 Not Given (Patient Refused): Acetaminophen 1000 mg PO once aa5 13:15 Drug: NS 0.9% 1000 ml Route: IV; Rate: 1 bolus; Site: right upper arm; aa5 14:30 Follow up: IV Status: Completed infusion; IV Intake: 1000ml aa5 13:52 Drug: hydrALAZINE 5 mg Route: IV; Rate: bolus; Site: right upper arm; aa5 Intake: 14:30 IV: 1000ml; Total: 1000ml. aa5 Outcome: 12:26 Decision to Hospitalize by Provider. ma2 15:15 Admitted to Tele via wheelchair, with chart, Report called to CORINA Nguyen aa5 15:15 Condition: stable 15:15 Instructed on the need for admit, Demonstrated understanding of instructions. Signatures: Dispatcher [employer] EDMS Ra Wilkerson Audri, RN RN aa5 Rey Lou RN RN la1 Jessica Peters MD MD ma2 Josie Maier kj1 Corrections: (The following items were deleted from the chart) 12:16 12:15 BP 194 / 75; Pulse 55bpm; Resp 16bpm; Spontaneous; Pulse Ox 98% RA; Temp 96.6F aa5 Oral; aa5 14:52 13:52 hydrALAZINE 5 mg IV at bolus in right antecubital aa5 aa5 15:29 15:25 Patient left the ED. aa5 aa5 15:38 14:40 Reassessment: Patient is alert, oriented x 3, equal unlabored respirations, skin aa5 warm/dry/pink. Pt to Echo via wheelchair. . aa5
--- NOTE | 2019-07-17 13:11 | EDPHYS ---
Physician Documentation [facility] Name: Linnea Gustafson Age: 78 yrs Sex: Female : 1940 Arrival Date: 07/17/2019 Time: 11:08 Bed 8 Private MD: ED Physician Jessica Peters HPI: 07/17 12:24 This 78 yrs old Female presents to ER via EMS with complaints of Bradycardia. ma2 12:24 The patient or guardian reports chest pain that is located primarily in the substernal ma2 area. Onset: suddenly, 1 day(s) ago. Associated signs and symptoms: Pertinent negatives: abdominal pain, lower extremity pain, lower extremity swelling, nausea. The chest pain is described as a pressure. Severity of pain: At its worst the pain was moderate in the emergency department the pain is unchanged. The patient has not experienced similar symptoms in the past. she was sent from pcp for bradyardia here she is sinus w rate 56 normotensive, yet has frequent PAC and PVC,. Historical: - Allergies: 11:15 Codeine; la1 11:15 PENICILLINS; la1 - Home Meds: 13:00 metoprolol succinate 50 mg oral Tb24 once daily [Active]; pravastatin 40 mg oral tab aa5 twice a day [Active]; paroxetine HCl 20 mg oral tab once daily [Active]; omeprazole 40 mg Oral cpDR 1 cap once daily [Active]; levothyroxine 75 mcg tab once daily [Active]; gabapentin 600 mg oral tab 3 times per day [Active]; donepezil 5 mg oral tab once daily [Active]; Namenda 10 mg oral tab 2 times per day [Active]; Lumigan 0.01 % ophthalmic drop [Active]; Zyrtec Oral [Active]; aspirin 81 mg Oral chew 1 tab once daily [Active]; - PMHx: 11:15 Anxiety; GERD; Glaucoma; Hypertension; Hypothyroidism; la1 11:15 Memory loss; Depression; aa5 - PSHx: 13:00 Hysterectomy; left eye; aa5 - Immunization history:: Adult Immunizations unknown. - Social history:: Smoking status: Patient/guardian denies using tobacco, Patient/guardian denies using alcohol, street drugs, The patient lives with family. - Ebola Screening: : No symptoms or risks identified at this time. - Family history:: not pertinent. ROS: 12:24 Constitutional: Negative for fever, chills, and weight loss. ma2 12:24 All other systems are negative. Exam: 12:24 Constitutional: This is a well developed, well nourished patient who is awake, alert, ma2 and in no acute distress. Chest/axilla: Normal chest wall appearance and motion. Nontender with no deformity. No lesions are appreciated. Cardiovascular: Regular rate and rhythm with a normal S1 and S2. No gallops, murmurs, or rubs. Normal PMI, no JVD. No pulse deficits. Respiratory: Lungs have equal breath sounds bilaterally, clear to auscultation and percussion. No rales, rhonchi or wheezes noted. No increased work of breathing, no retractions or nasal flaring. Abdomen/GI: Soft, non-tender, with normal bowel sounds. No distension or tympany. No guarding or rebound. No evidence of tenderness throughout. Neuro: Awake and alert, GCS 15, oriented to person, place, time, and situation. Cranial nerves II-XII grossly intact. Motor strength 5/5 in all extremities. Sensory grossly intact. Cerebellar exam normal. Normal gait. Vital Signs: 11:13 BP 199 / 89; Pulse 56; Resp 16; Pulse Ox 98% on R/A; la1 11:13 Temp 97.5(O); aa5 11:40 BP 199 / 80; Pulse 60; Resp 16 S; Pulse Ox 99% on R/A; aa5 12:15 BP 194 / 75; Pulse 55; Resp 16 S; Temp 97.6(O); Pulse Ox 98% on R/A; aa5 13:00 BP 196 / 67; Pulse 57; Resp 18 S; Pulse Ox 100% on R/A; aa5 13:30 BP 194 / 75; Pulse 57; Resp 16 S; Temp 98.0(TE); Pulse Ox 100% on R/A; aa5 14:30 BP 191 / 66; Pulse 56; Resp 16 S; Pulse Ox 99% on R/A; aa5 MDM: 11:09 Patient medically screened. ma2 12:24 Differential diagnosis: abnormal EKG, acute myocardial infarction, anxiety, ma2 gastroesophageal reflux disease (GERD). Data reviewed: vital signs, nurses notes, lab test result(s), EKG, radiologic studies. ED course: discussed with dr. mcconnell. 07/17 11:27 Order name: Basic Metabolic Panel; Complete Time: 12:19 2 07/17 11:27 Order name: CBC with Diff; Complete Time: 12:19 2 07/17 11:27 Order name: LFT's; Complete Time: 12:19 sd2 07/17 11:27 Order name: Magnesium; Complete Time: 12:19 2 07/17 11:27 Order name: NT PRO-BNP; Complete Time: 12:19 07/17 11:27 Order name: PT-INR; Complete Time: 12:19 07/17 11:27 Order name: Troponin (emerg Dept Use Only); Complete Time: 12:19 07/17 11:27 Order name: XRAY Chest (1 view); Complete Time: 12:19 2 07/17 12:21 Order name: TSH 07/17 12:21 Order name: T4 Free 07/17 12:27 Order name: CT Head Brain wo Cont 07/17 13:03 Order name: T4 Free; Complete Time: 13:38 EDMS 07/17 13:03 Order name: Thyroid Stimulating Hormone; Complete Time: 13:38 EDMS 07/17 13:29 Order name: CT; Complete Time: 13:38 EDMS 07/17 11:27 Order name: EKG; Complete Time: 11:29 2 07/17 11:27 Order name: Cardiac monitoring; Complete Time: 11:38 2 07/17 11:27 Order name: EKG - Nurse/Tech; Complete Time: 11:38 2 07/17 11:27 Order name: IV Saline Lock; Complete Time: 13:23 2 07/17 11:27 Order name: Labs collected and sent; Complete Time: 11:38 2 07/17 11:27 Order name: O2 Per Protocol; Complete Time: 11:38 2 07/17 11:27 Order name: O2 Sat Monitoring; Complete Time: 11:38 ma2 Administered Medications: 13:14 Not Given (Patient Refused): Reglan 10 mg IVP once; over 1 to 2 minutes aa5 13:14 Not Given (Patient Refused): Acetaminophen 1000 mg PO once aa5 13:15 Drug: NS 0.9% 1000 ml Route: IV; Rate: 1 bolus; Site: right upper arm; aa5 14:30 Follow up: IV Status: Completed infusion; IV Intake: 1000ml aa5 13:52 Drug: hydrALAZINE 5 mg Route: IV; Rate: bolus; Site: right upper arm; aa5 Disposition: 07/17/19 12:26 Hospitalization ordered by Florecita Mcconnell for Observation. Preliminary diagnosis is Chest pain, unspecified. - Bed requested for Telemetry/MedSurg (observation). - Status is Observation. aa5 - Condition is Stable. - Problem is new. - Symptoms are unchanged. UTI on Admission? No Signatures: Dispatcher [employer] EDMS Tangela Chatman, RN RN aa5 Rey Lou RN RN [email or web address] Juma Monte RN RN ja1 Jessica Peters MD MD ma2 Corrections: (The following items were deleted from the chart) 12:48 12:26 Hospitalization Ordered by Florecita Mcconnell MD for Observation. Preliminary ja1 diagnosis is Chest pain, unspecified. Bed requested for Telemetry/MedSurg (observation). Status is Observation. Condition is Stable. Problem is new. Symptoms are unchanged. UTI on Admission? No. ma2 15:25 12:48 07/17/2019 12:26 Hospitalization Ordered by Florecita Mcconnell MD for Observation. aa5 Preliminary diagnosis is Chest pain, unspecified. Bed requested for Telemetry/MedSurg (observation). Status is Observation. Condition is Stable. Problem is new. Symptoms are unchanged. UTI on Admission? No. ja1
[2019-07-17] MEDS ORDERED: HYDRALAZINE HCL 20 MG/ML VIAL ONE (13:47)
[2019-07-17 16:12] VITALS: BMI 29.4
--- NOTE | 2019-07-17 18:18 | P.HP ---
Certification for Inpatient Patient admitted to: Observation With expected LOS: <2 Midnights Practitioner: I am a practitioner with admitting privileges, knowledge of patient current condition, hospital course, and medical plan of care. Services: Services provided to patient in accordance with Admission requirements found in Title 42 Section 412.3 of the Code of Federal Regulations Patient History Date of Service: 07/17/19 Primary Care Provider: Linda Vasquez Reason for admission: Chest pain History of Present Illness: 78-year-old female with high blood pressure and diabetes who presented to the ED complaining of having some chest pain. Patient has been having chest pain for past 4 weeks that has been getting progressively worse. He has been in nature. Patient also having some shortness of breath along with chest pain. Patient denies having any nausea vomiting abdominal pain or any other associated symptoms. Patient stated that about 3 weeks ago she started having some numbness and burning on the left side of her arm with subsided however her chest pain started after that. Patient stated that she went to her primary care doctor's office today however before seeing her in the office visit office last wade to come to the ER to get a further checked out. Allergies codeine Allergy (Severe, Verified 07/17/19 15:45) Shortness of breath Penicillins Allergy (Severe, Verified 07/17/19 15:45) Itching/Hives/Rash Home Medications: Ascorbic Acid [Vitamin C] 1,000 mg PO BID 07/17/19 B Complex with Vitamin C [Super B-Complex & C] 1 tab PO DAILY 07/17/19 Cholecalciferol (Vitamin D3) [Vitamin D3] 1 tab PO DAILY 07/17/19 Donepezil HCl 5 mg PO BEDTIME 07/17/19 Gabapentin [Gralise] 600 mg PO TID 07/17/19 Levothyroxine Sodium 75 mcg PO DAILY 07/17/19 Melatonin 5 mg PO BEDTIME PRN 07/17/19 Metoprolol Succinate 20 mg PO DAILY 07/17/19 Multivitamin-Min/Iron/FA/Vit K [Multi For Her Softgel] 1 cap PO DAILY 07/17/19 [place]-3/Dha/Epa/Dpa/Fish Oil [[place]-3 1,050 mg Softgel] 100 mg PO DAILY Omeprazole [Prilosec] 40 mg PO DAILY 07/17/19 PARoxetine HCl [Paroxetine HCl] 20 mg PO DAILY 07/17/19 Pravastatin Sodium 40 mg PO BID 07/17/19 Threonine [l-Threonine] 100 mg PO DAILY 07/17/19 Ubidecarenone [Co Q10] 200 mg PO DAILY 07/17/19 - Past Medical/Surgical History Diabetic: No -: Anxiety -: GERD -: Glucoma -: HTN -: HYpothyroidism -: colitis -: hysterectomy -: Appy -: Major sx on siena feet - Family History Mother -: Hypertension, Other (see notes) Notes: dementia/alzheimers Father -: Cancer, Other (see notes) Notes: glucoma, prostate Cancer - Social History Smoking Status: Former smoker Alcohol use: No CD- Drugs: No Caffeine use: No Place of Residence: Home Review of Systems 10-point ROS is otherwise unremarkable Physical Examination - Vital Signs Temperature: 97 F Blood Pressure: 140/80 Pulse: 62 Respirations: 18 Pulse Ox (%): 98 - Physical Exam General: Alert, In no apparent distress HEENT: Atraumatic, PERRLA, Mucous membr. moist/pink, EOMI, Sclerae nonicteric Neck: Supple, 2+ carotid pulse no bruit, No LAD, Without JVD or thyroid abnormality Respiratory: Clear to auscultation bilaterally, Normal air movement Cardiovascular: Regular rate/rhythm, Normal S1 S2 Gastrointestinal: Normal bowel sounds, No tenderness Musculoskeletal: No tenderness Integumentary: No rashes Neurological: Normal gait, Normal speech, Normal strength at 5/5 x4 extr, Normal tone, Normal affect Lymphatics: No axilla or inguinal lymphadenopathy - Studies Laboratory Data (last 24 hrs) 07/17/19 11:35: PT 10.9, INR 0.92 07/17/19 11:35: WBC 7.7, Hgb 15.9 H, Hct 47.0 H, Plt Count 178 07/17/19 11:35: Sodium 144, Potassium 4.0, BUN 12, Creatinine 0.93, Glucose 120 H, Magnesium 2.1, Total Bilirubin 0.4, AST 19, ALT 25, Alkaline Phosphatase 102 Assessment and Plan - Problems (Diagnosis) (1) Chest pain Current Visit: Yes Status: Acute Plan: Chest pain with ACS rule out -troponin x1 negative in the ER. EKG within normal limits -will repeat troponin x2 and get a stress test and echocardiogram done here in the hospital -the patient's heart score is more than 3 -cardiology consulted. Appreciated recommendations Qualifiers: Chest pain type: other chest pain Qualified Code(s): R07.89 - Other chest pain; R07.8 - Other chest pain (2) HTN (hypertension) Current Visit: No Status: Chronic Qualifiers: Hypertension type: essential hypertension (3) Hypothyroidism Current Visit: No Status: Chronic Qualifiers: Hypothyroidism type: acquired Qualified Code(s): E03.9 - Hypothyroidism, unspecified - Plan Admitted to the hospital for ACS rule out Discharge Plan: Home Plan to discharge in: 72 Hours - Advance Directives Does patient have a Living Will: No Does patient have a Durable POA for Healthcare: No - Code Status/Comfort Care Code Status Assessed: Yes Critical Care: No
--- NOTE | 2019-07-17 18:32 | EKG ---
Test Date: 2019-07-17 Test Time: 11:03:23 Multimedia Engineer: JESSENIA MEASUREMENT RESULTS: Intervals: Rate: 64 FL: 160 QRSD: 84 QT: 460 QTc: 474 Avant: P: 60 FL: 160 QRS: 36 T: 74 INTERPRETIVE STATEMENTS: Sinus bradycardia with premature supraventricular complexes with occasional premature ventricular complexes Otherwise normal ECG Compared to ECG 12/28/2017 17:23:34 Atrial premature complex(es) now present Ventricular premature complex(es) now present Electronically Signed On 07-17-19 18:29:33 CDT by Juan Antonio Sharp
[2019-07-18] MEDS ORDERED: HYDROCODONE/APAP 10/325 TAB PO ONE (02:15)
[2019-07-18 04:49] LABS: Absolute Lymphocytes (CBC) 1.9 K/uL (0.7-4.9); Basophils % 0.8 % (0-1.3); Hematocrit 43.9 % (36.0-45.0); Lymphocytes % 29.7 % (15.3-44.8); MPV 9.2 fL (7.6-11.3); RBC Red Blood Cell Count 5.14 M/uL (3.86-4.86)
[2019-07-18 05:08] LABS: ALT/SGPT 21 U/L (12-78); AST/SGOT 18 U/L (15-37); Albumin 3.2 g/dL (3.4-5.0); Alkaline Phosphatase 85 U/L (45-117); BUN Blood Urea Nitrogen 10 mg/dL (7-18); Bicarbonate 25 mmol/L (21-32); Bilirubin Total 0.5 mg/dL (0.2-1.0); Glucose Level 102 mg/dL (74-106); HDL Cholesterol 43 mg/dL (40-60); LDL Cholesterol, Calculated 67 (<130); Potassium 3.6 mmol/L (3.5-5.1); Sodium Level 146 mmol/L (136-145); Troponin I < 0.02 ng/mL (0.0-0.045)
--- NOTE | 2019-07-18 08:01 | ECHO ---
HEIGHT: 5 ft 5 in WEIGHT: 177 lb 0 oz DATE OF STUDY: 07/17/[address]: Florecita Patel MD 2-DIMENSIONAL: YES M.MODE: YES DOPPLER: YES COLOR FLOW: YES TDS: NO PORTABLE: NO DEFINITY: NO BUBBLE STUDY: NO DIAGNOSIS: CHEST PAIN CARDIAC HISTORY: CATHERIZATION: NO SURGERY: NO PROSTHETIC VALVE: NO PACEMAKER: NO MEASUREMENTS (cm) DIASTOLIC (NORMALS) SYSTOLIC (NORMALS) IVSd 1.0 (0.6-1.2) LA Diam 3.5 (1.9-4.0) LVEF 79% LVIDd 4.2 (3.5-5.7) LVIDs 2.2 (2.0-3.5) %FS 47% LVPWd 1.0 (0.6-1.2) Ao Diam 2.7 (2.0-3.7) 2 DIMENSIONAL ASSESSMENT: RIGHT ATRIUM: NORMAL LEFT ATRIUM: NORMAL RIGHT VENTRICLE: NORMAL LEFT VENTRICLE: NORMAL TRICUSPID VALVE: NORMAL MITRAL VALVE: NORMAL PULMONIC VALVE: NORMAL AORTIC VALVE: SCLEROSIS PERICARDIAL EFFUSION: NONE AORTIC ROOT: NORMAL LEFT VENTRICULAR WALL MOTION: NORMAL DOPPLER/COLOR FLOW: NORMAL COMMENTS: NORMAL LEFT VENTRICULAR SIZE AND FUNCTION. AORTIC SCLEROSIS. NO WALL MOTION ABNORMALITY. NO EFFUSION. TECHNOLOGIST: Angela HANDY
[2019-07-18] MEDS ORDERED: REGADENOSON 0.4 MG/5 ML SYR IV ONE (08:14)
--- NOTE | 2019-07-18 10:05 | RAD REPORT ---
EXAM DESCRIPTION: NM - Rest Stress Cardiac Imaging - 07/18/2019 9:44 am CLINICAL HISTORY: Chest pain. COMPARISON: None. TECHNIQUE: The patient was administered approximately 10mCi of Tc 99m Sestamibi prior to resting SPE CT imaging of the heart. The patient was then administered approximately 30 mCi of Tc 99m Sestamibi f ollowing exercise or pharmacologic stress. Multiplanar SPECT images were reviewed. FINDINGS: There is uniformity of radiotracer uptake involving the entire left ventricular myocardiu m on rest and stress images. The left ventricular ejection fraction equals 74% IMPRESSION: Negative for a myocardial perfusion defect
[2019-07-18 13:53] VITALS: O2SAT 97
[2019-07-18 14:02] VITALS: BP 132/64; TEMP 97.6
--- NOTE | 2019-07-18 15:12 | P.DS ---
Admission Date: 07/17/19 Discharge Date: 07/18/19 Primary Care Provider: Linda Vasquez Disposition: ROUTINE DISCHARGE Discharge Condition: GOOD Reason for Admission: Chest pain Consultations: Cardiology- Dr. Sharp Procedures: None - Problems (1) Chest pain Current Visit: Yes Status: Acute Qualifiers: Chest pain type: other chest pain Qualified Code(s): R07.89 - Other chest pain; R07.8 - Other chest pain (2) HTN (hypertension) Current Visit: No Status: Chronic Qualifiers: Hypertension type: essential hypertension (3) Hypothyroidism Current Visit: No Status: Chronic Qualifiers: Hypothyroidism type: acquired Qualified Code(s): E03.9 - Hypothyroidism, unspecified Brief History of Present Illness: 78-year-old woman with a history of hypertension and hypothyroidism presented to the emergency department with a complaint of chest pain which has been present for about 4 weeks. Chest pain described as intermittent. She stated that the chest pain was preceded by numbness in the left upper extremity. Chest pain also associated with shortness of breath. Her heart score was 3 in the ED. Initial troponin negative. EKG no significant evidence of ischemia. Patient was placed under observation for ACS rule out. Hospital Course: Patient placed under observation with telemetry. Troponin trending came back negative. Nuclear stress test was done which did not show any stress-induced ischemia. She was evaluated by Cardiology Dr. Sharp, no additional management recommended. ACS has been ruled out. Patient is deemed stable for discharge. No changes made in her home medications. Her LDL level was normal. Vital Signs/Physical Exam: Temp Pulse Resp BP Pulse Ox 97.6 F 55 18 132/64 97 07/18/19 12:00 07/18/19 12:00 07/18/19 12:00 07/18/19 12:00 07/18/19 12:00 Laboratory Data at Discharge: WBC 6.4 K/uL (4.3-10.9) D 07/18/19 04:28 Hgb 15.4 g/dL (12.0-15.0) H 07/18/19 04:28 Hct 43.9 % (36.0-45.0) 07/18/19 04:28 Plt Count 154 K/uL (152-406) 07/18/19 04:28 PT 10.9 SECONDS (9.5-12.5) 07/17/19 11:35 INR 0.92 07/17/19 11:35 Sodium 146 mmol/L (136-145) H 07/18/19 04:28 Potassium 3.6 mmol/L (3.5-5.1) 07/18/19 04:28 BUN 10 mg/dL (7-18) 07/18/19 04:28 Creatinine 0.75 mg/dL (0.55-1.3) 07/18/19 04:28 Glucose 102 mg/dL (74-106) 07/18/19 04:28 Magnesium 2.1 mg/dL (1.8-2.4) 07/17/19 11:35 Total Bilirubin 0.5 mg/dL (0.2-1.0) 07/18/19 04:28 AST 18 U/L (15-37) 07/18/19 04:28 ALT 21 U/L (12-78) 07/18/19 04:28 Alkaline Phosphatase 85 U/L (45-117) 07/18/19 04:28 Troponin I < 0.02 ng/mL (0.0-0.045) 07/18/19 04:28 Triglycerides 130 mg/dL (<150) 07/18/19 04:28 Cholesterol 136 mg/dL (<200) 07/18/19 04:28 HDL Cholesterol 43 mg/dL (40-60) 07/18/19 04:28 Cholesterol/HDL Ratio 3.16 07/18/19 04:28 Home Medications: Ascorbic Acid [Vitamin C] 1,000 mg PO BID 07/17/19 B Complex with Vitamin C [Super B-Complex & C] 1 tab PO DAILY 07/17/19 Cholecalciferol (Vitamin D3) [Vitamin D3] 1 tab PO DAILY 07/17/19 Donepezil HCl 5 mg PO BEDTIME 07/17/19 Gabapentin [Gralise] 600 mg PO TID 07/17/19 Levothyroxine Sodium 75 mcg PO DAILY 07/17/19 Melatonin 5 mg PO BEDTIME PRN 07/17/19 Metoprolol Succinate 20 mg PO DAILY 07/17/19 Multivitamin-Min/Iron/FA/Vit K [Multi For Her Softgel] 1 cap PO DAILY 07/17/19 [place]-3/Dha/Epa/Dpa/Fish Oil [[place]-3 1,050 mg Softgel] 100 mg PO DAILY Omeprazole [Prilosec] 40 mg PO DAILY 07/17/19 PARoxetine HCl [Paroxetine HCl] 20 mg PO DAILY 07/17/19 Pravastatin Sodium 40 mg PO BID 07/17/19 Threonine [l-Threonine] 100 mg PO DAILY 07/17/19 Ubidecarenone [Co Q10] 200 mg PO DAILY 07/17/19 Diet: AHA Activity: Ad chevy
--- NOTE | 2019-07-18 15:57 | EKG ---
Test Date: 2019-07-17 Test Time: 21:21:31 Motor Brakeman: RT MEASUREMENT RESULTS: Intervals: Rate: 54 SC: 168 QRSD: 84 QT: 448 QTc: 424 Milnor: P: 60 SC: 168 QRS: 42 T: 59 INTERPRETIVE STATEMENTS: Sinus bradycardia Otherwise normal ECG Compared to ECG 07/17/2019 11:03:23 Atrial premature complex(es) no longer present Ventricular premature complex(es) no longer present Electronically Signed On 07-18-19 15:54:31 CDT by Juan Antonio Sharp
--- NOTE | 2019-07-18 21:20 | CON ---
Date of Consultation: 07/18/2019 Admitted to on 07/17/2019. Reason For Consultation: Bradycardia, hypertension, and chest pain. History Of Present Illness: Ms. Gustafson is a 78-year-old woman. She has a history of dementia, hypot hyroidism, hypertension, gastroesophageal reflux disease, anxiety, depression, and dyslipidemia. No previous cardiac history. Has been feeling poorly. Has had some bradycardia in the 50s, although th at is chronic. She has had some hypertension. Has had some substernal chest pain that is atypical w ithout any nausea, vomiting, diaphoresis, PND, orthopnea, pedal edema, palpitation, or syncope. By t he time she came in, she had an EKG showing sinus bradycardia. She has already ruled out for an SC. Had a normal chest x-ray, normal CT of her head, and normal echocardiogram. Lexiscan is pending to ay. Allergies: PENICILLIN AND CODEINE. Review of Systems: Negative. Social History: Negative. Family History: Negative. Medications At Home: Aspirin, Neurontin, Namenda, multiple vitamins, Synthroid, metoprolol, Prilosec , Paxil, and Pravachol. Physical Examination: General: She was in no acute distress. HEENT: Negative. Neck: Supple without any bruit, lymphadenopathy, JVD, or thyromegaly. Chest: Clear to auscultation and percussion. Cardiac: Regular rhythm and rate. No murmurs, gallops, or rubs. Abdomen: Benign. Extremities: No clubbing, cyanosis, or edema. Skin: Dry and intact. Neurological: She was nonfocal. Pulses were present distally bilaterally. Diagnostic Data: As stated earlier. Impression And Plan: Hypertension with bradycardia and atypical chest pain. Echocardiogram is artem l. EKG showing sinus bradycardia. I would decrease her metoprolol dose to half. I would probably p ut her on an ELVER inhibitor with some diuretic for her blood pressure. We will see what her Lexiscan shows and make decisions in that regard afterward. Her other problems including gastroesophageal ref lux, anxiety, hypothyroidism, and dyslipidemia as well as dementia seem to be stable at this point. FOSTER/BHUPENDRA Voice ID: [id number] Report ID: [id number]
--- NOTE | 2019-07-19 08:13 | TREADPHA ---
DX: CHEST PAIN Date of Study: 07/19/19 Ht: 5 5 Wt: 177 lb 0 oz Consulting Physician: YADI MEDICATIONS: LOPRESSOR, PRAVASTATIN, PAROXETINE, LEVOTHYROXINE, GABAPENTIN. HISTORY: HYPERTENSION, HYPOTHYROIDISIM, GERD, HYPERLIPIDEMIA. PHYSICIAL EXAMINATION: RESTING B.P.: 150/74 RESTING H.R.: 60 RESTING EKG: NORMAL. PROTOCOL: LEXISCAN EXERCISE TIME: 3:30 B.P. AT PEAK STRESS: 103/59 IMPRESSION: LEXISCAN STRESS TEST PERFORMED PER PROTOCOL. CARDIOLITE INJECTED PER PROTOCOL. NO SUPRA VENTRICULAR TACHYCARDIA, NO VENTRICULAR TACHYCARDIA, NO ARRHYTHMIAS NOTED. PATIENT DENIED CHEST PAIN. PATIENT TOLERATED WELL. PLEASE SEE NUCLEAR MEDICINE REPORT.
== END 2019-07-18 16:47 | disposition home or self-care (01) ==
LOC: ER 11:05 → ERHOLD 12:29 → 2ND 15:15
PROVIDERS: ADMIT Family Medicine; ATTEND Internal Medicine
DX: R07.89 Other chest pain (principal); R00.1 Bradycardia, unspecified; I10 Essential (primary) hypertension; F41.9 Anxiety disorder, unspecified; K21.9 Gastro-esophageal reflux disease without esophagitis; H40.9 Unspecified glaucoma; E03.9 Hypothyroidism, unspecified; Z87.891 Personal history of nicotine dependence
CPT/HCPCS: 96361; 93005 ×2; 93017; 93306; 85025 ×2; 80048; 36415; 83735; 85610; 80061; 80076; 84443; 84484 ×3; 84439; 80053; 83880; 70450; 71045; 78452; 96374; 99285; J0360; J2785; J7030; A9500; G0378 ×3; J2765

== ENCOUNTER 2022-01-12 08:04 | Emergency (ER) | payer MEDICARE, OTHER ==
--- OUTSIDE RECORDS SUMMARY | 2022-01-12 08:08 | XMS REPORT | Continuity of Care Document ---
:1940 Author Organization [facility] t Address [address] [place] [address] Care Team Providers Name Role Phone Silva Patel Attending Clinician Unavailable Tegan Attending Clinician Unavailable JANELL Attending Clinician Unavailable Payers Payer Name Policy Type Policy Number Effective Date Expiration Date S [facility] [id number] 2021 (MEDICARE 00:00:00 REPLACEMENT HMO) Problems This patient has no known problems. Allergies, Adverse Reactions, Alerts Allergy Allergy Status Severity Reaction(s) Onset Inactive Treating Comm ents Source Name Type Date Date Clinician Caffeine Adverse Active jitery [facility] Medications Ordered Filled Start Stop Current Ordering Indication Dosage Frequency Signature Comments Components Source Medication Medication Date Date Medication? Clinician (SIG) Name Name Vitamin E Vitamin E Yes Yue [address] [facility] Natural Natural 1-30 [facility] - 00:[facility]: [facility] 00 l [facility] ent Clin[facility] L-Theanine L-Theanine Yes Yue as [facility] Enalapril Enalapril Yes Yue [address] [facility] Maleate Maleate [facility] B-12 B-12 Yes Yue as [facility] directed [facility] Gabapentin Gabapentin Yes Yue [address] [facility] Millender as needed [facility] Pravastatin Pravastatin Yes Yue [address] [facility] Sodium Sodium Millender in evening [facility] Meclizine Meclizine Yes Yue [address] [facility] HCl HCl Millender as needed [facility] for [facility] dizziness l [facility]pat[facility] ent Clinics Omeprazole Omeprazole Yes Yue [address] [facility] Millender [facility] Levothyroxi Levothyroxi Yes Yue [address] [facility] ne Sodium ne Sodium Millender on an [facility] empty [facility] stomach in l the Outpati morning ent Clinics Pravastatin Pravastatin Yes Yue TAKE [address] [facility] Sodium Sodium Millender TABLET BY L [facility]kes - MOUTH ONCE [facility] DAILY l Outpati ent Clinics Aspir-81 Aspir-81 Yes Yue [address] [facility] Vitamin D3 Vitamin D3 Yes Yue [address] [facility] Millender [facility] Namenda Namenda Yes Yue [address] [facility] Millender [facility] Fish Oil Fish Oil Yes Yue [address] Millender [facility] Multi For Multi For Yes Yue as [facility] Her 50+ Her 50+ Millender directed [facility] War[place] 3 [place] 3 Yes Yue [address] [facility] Millender [facility] Memantine Memantine Yes Yue [address] [facility] HCl HCl Millender [facility] Yes Yue [address] [facility] Allergy Allergy [facility] Paroxetine Paroxetine Yes Yue [address] [facility] HCl HCl [facility] in the [facility] Combigan Combigan Yes Yue [address] [facility] Millender into [facility] affected [facility] eye l [facility] Yes Yue [address] [facility] into [facility] eye [facility]ics Lumigan Lumigan Yes Yue [address] [facility] Millender into [facility] affected [facility] eye in the l evening Outpati ent Clinics Metoprolol Metoprolol Yes Yue [address] [facility] Succinate Succinate Millender [facility] Super B Super B Yes Yue as [facility] Complex/Vit Complex/Vit [facility] directed [facility] sm[facility] Gabapentin Gabapentin Yes Yue [address] [facility] Millender [facility] Donepezil Donepezil Yes Yue [address] [facility] HCl HCl Millender at bedtime [facility] CoQ10 CoQ10 Yes Yue [address] [facility] Millender with a [facility] meal [facility] Vitamin C Vitamin C Yes Yue [address] [facility] Millender [facility] Lidocaine Lidocaine Yes Yue [address] [facility] HCl HCl Millender applicatio [facility] - n to Memoria affected l area as Outpati needed ent Clinics Melatonin Melatonin Yes Yue [address] [facility] Millender at bedtime Luke s - as needed [facility] with food l Outpati ent Clinics Hair Skin Hair Skin Yes Yue as [facility] Nails Nails [facility] directed [facility] Procedures This patient has no known procedures. Encounters Start End Encounter Admission Attending Care Care Encounter Source Date/Time Date/Time Type Type Clinicians Facility Department ID 2021-12-02 Outpatient , [facility]:38 Damien [id number] [facility] 2021-12-02 Out[facility] , [facility] 13:[facility] Damien [id number] [facility] 2021-12-02 Out[facility] , [facility] 13:12:01 Damien [id number] [facility] 2021-12-02 Outpatient Millender, [facility] [id number] 12:56:59 Yue [id number] [facility] 2021-12-02 Outpatient Millender, [facility] [id number] 11:43:25 Yue [id number] [facility] 2021-12-02 Outpatient Millender, [facility] [id number] 11:42:24 Yue [id number] [facility] 2021-12-02 Outpatient Millender, [facility] [id number] 11:19:58 Yue [id number] [facility] 2021-12-15 2021-12-15 ambulatory [facility] [id number] [facility] 2021-10-01 2021-10-01 Outpatient DMG DMG [id number] [facility] 07:01:00 07:01:00 [facility] 2021-09-28 2021-09-28 ambulatory [facility] [id number] [facility] 2021-05-26 2021-05-26 Outpatient [facility] [id number] [facility] 2021-05-22 2021-05-22 Outpatient [facility] [id number] [place] 00:00:00 00:00:[address] GEOFF [address] 2021-05-22 2021-05-22 Outpatient [facility] [id number] [place] 00:00:00 00:00:00 GEOFF [address] 2021-05-13 2021-05-13 Outpatient [facility] [id number] [facility] 2021-05-06 2021-05-06 Outpatient [facility] [id number] [facility] 2021-04-22 2021-04-22 Outpatient [facility] [id number] [facility] 2021-04-14 2021-04-14 Outpatient [facility] [id number] [facility] 2020-07-10 2020-07-10 [facility] [id number] [facility] 16:40:00 16:40:00 [facility] Clinics 2020-04-07 2020-04-07 [facility] [id number] 16:16:00 16:16:[address] [facility] Medicine l Medicine Outpati ent Clinics 2020-04-07 2020-04-07 [facility] [id number] [address] 14:01:00 14:01:00 t Vill[facility] - Drive [facility] l Medicine Outpati ent Clinics 2020-04-07 2020-04-07 [facility] [id number] [address] 14:01:00 14:01:00 t Villanova Villanova [employer] Luke s - Drive [facility] Medicine l Medicine Outpati ent Clinics 2020-04-07 2020-04-07 [facility] [id number] [address] 13:52:00 13:52:00 t Vill[facility] [employer] s - Drive [facility] Medicine l Medicine Outpati ent Clinics 2020-04-07 2020-04-07 [facility] [id number] 11:00:00 11:00:00 t [facility] Medicine l Medicine Outpati ent Clinics 2020-02-25 2020-02-25 [facility] [id number] 14:54:00 14:54:00 t [facility] Medicine Medicine Outpati ent Clinics 2020-02-25 2020-02-25 [facility] [id number] 09:30:00 09:30:00 t [facility] Medicine l Medicine Outpati ent Clinics 2019-12-21 2019-12-21 [facility] [id number] 11:00:00 11:00:[address] [facility] Medicine l Medicine Outpati ent Clinics 2019-09-21 2019-09-21 [facility] [id number] 16:20:00 16:20:[address] [facility] Medicine l Medicine Outpati ent Clinics 2019-08-07 2019-08-07 [facility] [id number] 23:48:00 23:48:00 t [facility] Medicine l Medicine Outpati ent Clinics 2019-08-07 2019-08-07 [facility] [id number] 14:00:00 14:00:00 t [facility] Medicine Outpati ent Clinics 2019-08-02 2019-08-02 [facility] [id number] [address] 17:35:00 17:35:00 [facility] Medicine Outpati ent Clinics 2019-07-23 2019-07-23 [facility] [id number] 17:52:00 17:52:00 t Villanova Villanova [employer] Luke s - Drive [facility] Medicine Outpati ent Clinics 2019-07-23 2019-07-23 [facility] [id number] 17:46:00 17:46:00 t Villanova Villanova [employer] Luke s - Drive [facility] Medicine l Medicine Outpati ent Clinics 2019-07-17 2019-07-17 [facility] [id number] 09:00:00 09:00:00 t [facility] l Medicine Outpati ent Clinics 2019-05-29 2019-05-29 [facility] [id number] 11:00:00 11:00:00 t Villanova Villanova [employer] Luke s - Drive [facility] Medicine Outpati ent Clinics 2019-04-16 2019-04-16 [facility] [id number] [address] 14:13:00 14:13:00 t Villanova Villanova [employer] Luke s - Drive [facility] Medicine Medicine Outpati ent Clinics 2019-02-27 2019-02-27 [facility] [id number] 14:40:00 14:40:00 t Villanova Villanova [employer] Luke s - Drive [facility] Medicine l Medicine Outpati ent Clinics 2019-02-26 2019-02-26 [facility] [id number] 10:55:00 10:55:00 t Villanova Villanova [employer] Luke s - Drive [facility] l Medicine Outpati ent Clinics 2019-02-15 2019-02-15 [facility] [id number] 16:43:00 16:43:00 t Villanova Villanova [employer] s - Drive [facility] 2018-12-06 2018-12-06 [facility] [id number] [address] 10:48:00 10:48:00 t [employer] [facility] Outpati ent Clinics 2018-04-06 2018-04-06 [facility] [id number] 15:00:00 15:00:00 t [facility] Outpati ent Clinics 2018-03-09 2018-03-09 [facility] [id number] [facility] 15:00:00 15:00:00 t F2G [facility] Results This patient has no known results.
[2022-01-12] MEDS ORDERED: KETOROLAC 30 MG/ML INJ ONE (08:37)
[2022-01-12 08:46] LABS: Hematocrit 45.4 % (36.0-45.0); Lymphocytes % 12.9 % (15.3-44.8); MPV 8.4 fL (7.6-11.3); RBC Red Blood Cell Count 5.28 M/uL (3.86-4.86)
[2022-01-12 08:58] LABS: Potassium 3.7 mmol/L (3.5-5.1)
--- NOTE | 2022-01-12 09:06 | RAD REPORT ---
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 Mild diffu se osteopenia is seen. No acute fracture or dislocation.
--- NOTE | 2022-01-12 09:47 | ER ---
Nurse's Notes [facility] Name: Linnea Gustafson Age: 81 yrs Sex: Female : 1940 Arrival Date: 01/12/2022 Time: 08:06 Bed 10 Private MD: Diagnosis: Unspecified osteoarthritis, unspecified site-hand Presentation: 01/12 08:13 Chief complaint: Patient states: L hand pain x 4 days, denies known injury, no redness ph noted, swelling to L thumb. Coronavirus screen: Vaccine status: Patient reports receiving the 1st dose of the Covid vaccine. Ebola Screen: No symptoms or risks identified at this time. Initial Sepsis Screen: Does the patient meet any 2 criteria? No. Patient's initial sepsis screen is negative. Does the patient have a suspected source of infection? No. Patient's initial sepsis screen is negative. Risk Assessment: Do you want to hurt yourself or someone else? Patient reports no desire to harm self or others. Onset of symptoms was January 12, 2022. 08:13 Method Of Arrival: Ambulatory ph 08:13 Acuity: VANNESSA 3 ph Triage Assessment: 08:18 General: Appears in no apparent distress. Behavior is calm, cooperative, Denies fever. ph Pain: Complains of pain in left hand. Neuro: Level of Consciousness is awake, alert, obeys commands, Oriented to person, place, time, situation. Musculoskeletal: Circulation, motion, and sensation intact. Range of motion: intact in all extremities, Swelling present in left thumb no redness or injury noted. Historical: - Allergies: 08:12 PENICILLINS; ph 08:12 Codeine; ph - PMHx: 08:12 Anxiety; Depression; GERD; Glaucoma; Hypertension; Hypothyroidism; memory loss; ph - Immunization history:: Adult Immunizations up to date. - Social history:: Smoking status: Patient denies any tobacco usage or history of. - Family history:: not pertinent. - Hospitalizations: : No recent hospitalization is reported. Screenin:22 Abuse screen: Denies threats or abuse. Denies injuries from another. Nutritional ww screening: No deficits noted. Tuberculosis screening: No symptoms or risk factors identified. Fall Risk None identified. Assessment: 08:22 General: Appears in no apparent distress. Behavior is calm, cooperative. Pain: ww Complains of pain in lateral aspect of left hand, lateral aspect of left fingers, medial aspect of left hand and medial aspect of left fingers. Neuro: Level of Consciousness is awake, alert, obeys commands, Oriented to person, place, time, situation, Academic Manager are weak on left due to pain. Gait is steady, Speech is normal. Cardiovascular: Capillary refill < 3 seconds Patient's skin is warm and dry. Respiratory: Airway is patent Respiratory effort is even, unlabored, Respiratory pattern is regular, symmetrical. GI: No signs and/or symptoms were reported involving the gastrointestinal system. : No signs and/or symptoms were reported regarding the genitourinary system. EENT: No signs and/or symptoms were reported regarding the EENT system. Derm: Skin is thin. 09:12 Reassessment: Patient appears in no apparent distress at this time. No changes from ww previously documented assessment. Patient and/or family updated on plan of care and expected duration. Pain level reassessed. Vital Signs: 08:13 BP 176 / 84; Pulse 69; Resp 18; Temp 97.5; Pulse Ox 98% ; Weight 65.77 kg; Height 5 ft. ph 5 in. (165.10 cm); Pain 10/10; 09:57 BP 178 / 81; Pulse 55; Resp 18; Pulse Ox 98% on R/A; ww 08:13 Body Mass Index 24.13 (65.77 kg, 165.10 cm) ph 08:13 pt states that she did not take morning BP medication ph ED Course: 08:06 Patient arrived in ED. ds1 08:10 Mark Brown MD is Attending Physician. rn 08:15 Triage completed. ph 08:18 Arm band placed on Patient placed in an exam room. ph 08:22 Katie Garcia RN is Primary Nurse. ww 08:22 Patient has correct armband on for positive identification. Call light in reach. placed ww in chair with wheels locked and call light in lap. 08:30 Inserted saline lock: 20 gauge in right antecubital area, using aseptic technique. ww Blood collected. 08:48 XRAY Hand LEFT 3 View In Process Unspecified. EDMS 09:57 No provider procedures requiring assistance completed. intact, bleeding controlled, No ww redness/swelling at site. Pressure dressing applied. Administered Medications: 08:37 Drug: Ketorolac 15 mg Route: IVP; Site: right antecubital; ww Outcome: 09:46 Discharge ordered by . rn 09:57 Discharged to home ambulatory. ww 09:57 Condition: stable 09:57 Discharge instructions given to patient, Instructed on discharge instructions, follow up and referral plans. medication usage, safety practices, Demonstrated understanding of instructions, follow-up care, medications. 09:58 Patient left the ED. ww Signatures: Dispatcher [employer] EDAK Shireen Bonilla dsAudie Mark Brown MD MD rn Hall, Patricia, RN RN Katie Garcia RN RN naomy Corrections: (The following items were deleted from the chart) 08:18 08:13 BP 176 / 84; Pulse 69bpm; Resp 18bpm; Pulse Ox 98%; Temp 97.5F; 65.77 kg; Height ph 5 ft. 5 in.; BMI: 24.1; Pain 10/10; ph
--- NOTE | 2022-01-12 09:47 | EDPHYS ---
Physician Documentation [facility] Name: Linnea Gustafson Age: 81 yrs Sex: Female : 1940 Arrival Date: 01/12/2022 Time: 08:06 Bed 10 Private MD: ED Physician Mark Brown HPI: 01/12 08:27 This 81 yrs old Female presents to ER via Ambulatory with complaints of Hand Pain. rn 08:27 The patient or guardian reports pain. The complaints affect the left hand diffusely. rn Context: The problem was sustained at an unknown location, resulted from an unknown cause. Onset: The symptoms/episode began/occurred 3 day(s) ago. Modifying factors: The symptoms are alleviated by holding still, the symptoms are aggravated by movement. Associated signs and symptoms: Pertinent negatives: cyanosis distally, decreased sensation distally, fever, numbness distally, tingling distally. Severity of symptoms: At their worst the symptoms were moderate, in the emergency department the symptoms are unchanged. The patient has not experienced similar symptoms in the past. The patient has not recently seen a physician. Pt reports left hand pain, worse in thumb and 2nd/3rd digits. No trauma. No fever. NO hx of gout/pseudogout. Reports slowly getting worse. Does have history and problems with arthritis of hips and elbow. No bite. No laceration or open wounds. . Historical: - Allergies: 08:12 PENICILLINS; ph 08:12 Codeine; ph - PMHx: 08:12 Anxiety; Depression; GERD; Glaucoma; Hypertension; Hypothyroidism; memory loss; ph - Immunization history:: Adult Immunizations up to date. - Social history:: Smoking status: Patient denies any tobacco usage or history of. - Family history:: not pertinent. - Hospitalizations: : No recent hospitalization is reported. ROS: 08:27 Constitutional: Negative for fever, chills, and weight loss, Eyes: Negative for injury, rn pain, redness, and discharge, Neck: Negative for injury, pain, and swelling, Cardiovascular: Negative for chest pain, palpitations, and edema, Respiratory: Negative for shortness of breath, cough, wheezing, and pleuritic chest pain, Abdomen/GI: Negative for abdominal pain, nausea, vomiting, diarrhea, and constipation, Back: Negative for injury and pain, MS/Extremity: + left hand pain Skin: Negative for injury, rash, and discoloration, Neuro: Negative for headache, weakness, numbness, tingling, and seizure. Exam: 08:27 Constitutional: This is a well developed, well nourished patient who is awake, alert, rn and in no acute distress. Head/Face: Normocephalic, atraumatic. Cardiovascular: Regular rate and rhythm. No pulse deficits. Respiratory: No increased work of breathing, no retractions or nasal flaring. Skin: Warm, dry, no cellulitis or open wounds MS/ Extremity: Pulses equal, no cyanosis. Neurovascular intact. Painful ROM left hand and fingers without fusiform swelling/erythema/open wounds. Pain with passive closure of left hand and making fist. No warmth or fluctuance. Vital Signs: 08:13 BP 176 / 84; Pulse 69; Resp 18; Temp 97.5; Pulse Ox 98% ; Weight 65.77 kg; Height 5 ft. ph 5 in. (165.10 cm); Pain 10/10; 09:57 BP 178 / 81; Pulse 55; Resp 18; Pulse Ox 98% on R/A; ww 08:13 Body Mass Index 24.13 (65.77 kg, 165.10 cm) ph 08:13 pt states that she did not take morning BP medication ph MDM: 08:10 Patient medically screened. rn 09:41 Differential diagnosis: tendonitis, arthritis, osteoarthritis, inflammatory arthritis. rn Data reviewed: vital signs, nurses notes, lab test result(s), radiologic studies, plain films, and as a result, I will discharge patient. Counseling: I had a detailed discussion with the patient and/or guardian regarding: the historical points, exam findings, and any diagnostic results supporting the discharge/admit diagnosis, lab results, radiology results, the need for outpatient follow up, to return to the emergency department if symptoms worsen or persist or if there are any questions or concerns that arise at home. Response to treatment: the patient's symptoms have mildly improved after treatment, and as a result, I will discharge patient. Special discussion: I discussed with the patient/guardian in detail that at this point there is no indication for admission to the hospital. It is understood, however, that if the symptoms persist or worsen the patient needs to return immediately for re-evaluation. Based on the history and exam findings, there is no indication for further emergent testing or inpatient evaluation. I discussed with the patient/guardian the need to see the primary care provider for further evaluation of the symptoms. ED course: Labs unremarkable, procal neg, xray shows osteoarthritis. . 01/12 08:24 Order name: CBC with Diff; Complete Time: 09:07 rn 01/12 08:24 Order name: Basic Metabolic Panel; Complete Time: 09:07 rn 01/12 08:16 Order name: XRAY Hand LEFT 3 View; Complete Time: 09: rn 01/12 08:24 Order name: Procalcitonin; Complete Time: 09:41 rn 01/12 08:32 Order name: Uric Acid; Complete Time: 09: rn 01/12 08:24 Order name: IV Start; Complete Time: 08:33 rn Administered Medications: 08:37 Drug: Ketorolac 15 mg Route: IVP; Site: right antecubital; ww Disposition Summary: 01/12/22 09:46 Discharge Ordered Location: Home rn Problem: new rn Symptoms: have improved rn Condition: Stable rn Diagnosis - Unspecified osteoarthritis, unspecified site - hand rn Followup: rn - With: Private Physician - When: As needed - Reason: Recheck today's complaints, Re-evaluation by your physician Discharge Instructions: - Discharge Summary Sheet rn - Osteoarthritis rn Forms: - Medication Reconciliation Form rn - Thank You Letter rn - 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
[2022-01-12 10:04] VITALS: TEMP 97.5; O2SAT 98
[2022-01-12 10:05] VITALS: BP 178/81
== END 2022-01-12 09:58 | disposition home or self-care (01) ==
LOC: ER 08:04
DX: M19.042 Primary osteoarthritis, left hand (principal); I10 Essential (primary) hypertension; Z88.0 Allergy status to penicillin; Z88.5 Allergy status to narcotic agent
CPT/HCPCS: 36415; 80048; 84145; 84550; 85025; 96374; 99284